=== PATIENT | male | born 1965 | race Caucasian/White ===

== ENCOUNTER 2021-04-09 08:55 | Outpatient (REF) | payer OTHER, SELFPAY ==
[2021-04-09 21:10] LABS: ALT 29 U/L (16-63); AST 12 U/L (15-37); Albumin 4.1 g/dL (3.4-5.0); Alkaline Phosphatase 58 U/L (46-116); Anion Gap 8.9 mmol/L (3-11); BUN 16 mg/dL (7-18); Bilirubin, Total 0.8 mg/dL (0.2-1.0); CO2 27.1 mmol/L (21.0-32.0); Calcium 9.1 mg/dL (8.5-10.1); Calculated LDL 153 mg/dL (<100); Chloride 106 mmol/L (98-107); Cholesterol 226 mg/dL (<200); Glucose 95 mg/dL (74-106); HDL Cholesterol 59 mg/dL (40-60); Potassium 4.3 mmol/L (3.5-5.1); Sodium 142 mmol/L (136-145); Total Protein 7.1 g/dL (6.4-8.2); Triglyceride 70 mg/dL (<150)
== END 2021-04-09 08:56 | disposition home or self-care (01) ==
LOC: NCHCN 08:55
PROVIDERS: Visit Provider Nurse Practitioner Family
DX: Z13.220 Encounter for screening for lipoid disorders (principal)
CPT/HCPCS: 80053; 80061

== ENCOUNTER 2025-09-06 11:26 | Outpatient (REF) | payer OTHER, SELFPAY ==
[2025-09-06 20:31] LABS: Abs Immature Grans 0.04 10^3/uL (0.0-0.06); HCT 48.5 % (40.0-50.0); HGB 16.7 g/dL (13.5-17.5); Immature Grans % 0.8 %; MCH 31.2 pg (27.0-33.0); MCHC 34.4 % (32.0-36.0); MCV 91 fL (80-95); MPV 10.8 fL (8.0-11.0); Platelet Count 273 10^3/uL (130-400); RBC 5.36 10^6/uL (4.36-5.78); RDW 12.3 % (11.8-14.1); RDW-SD 40.7 fL; WBC 5.23 10^3/uL (4.4-10.8)
[2025-09-06 22:13] LABS: Hemoglobin A1C 4.9 % (<5.7)
[2025-09-06 22:24] LABS: ALT 22 U/L (10-49); AST 25 U/L (<34); Albumin 4.4 g/dL (3.2-5.0); Alkaline Phosphatase 72 U/L (46-116); Anion Gap 9.4 mmol/L (3-11); BUN 17 mg/dL (9-23); Bilirubin, Total 0.6 mg/dL (0.2-1.2); CO2 24.6 mmol/L (20.0-31.0); Calcium 9.1 mg/dL (8.3-10.6); Chloride 108 mmol/L (98-107); Cholesterol 232 mg/dL (<200); Glucose 89 mg/dL (74-106); HDL Cholesterol 69 mg/dL (>or=40); Potassium 4.6 mmol/L (3.5-5.1); Sodium 142 mmol/L (136-145); Total Protein 7.6 g/dL (5.7-8.2)
[2025-09-07 17:34] LABS: PSA, Screening 1.4 ng/mL (<=3.5)
[2025-09-07 18:14] LABS: HIV-1/2 Ag & Ab Screen Negative (Negative); Hepatitis C Ab w Rflx HCV PCR Negative (Negative)
== END 2025-09-06 11:27 | disposition home or self-care (01) ==
LOC: NCHCN 11:26
PROVIDERS: PCP Nurse Practitioner Family; Visit Provider Nurse Practitioner Family
DX: Z00.00 Encounter for general adult medical examination without abnormal findings (principal); Z11.59 Encounter for screening for other viral diseases; Z13.6 Encounter for screening for cardiovascular disorders; Z12.5 Encounter for screening for malignant neoplasm of prostate
CPT/HCPCS: 80053; 80061; 84153; 86803; 87389; 83036; 85025